=== PATIENT | male | born 1995 | race Caucasian/White ===

== ENCOUNTER 2017-01-19 15:44 | Emergency (ER) | payer OTHER ==
[~2017-01-19] VITALS: Ht 180.3 cm; Wt 64.2 kg
[2017-01-19 15:46] VITALS: TEMP 36.6; Ht 180.3 cm; Wt 64.2 kg
--- NOTE | 2017-01-19 15:58 | EMERGENCY ROOM VISIT NOTE ---
History Report prepared by Delbert: Ferny Aguilar Under the Supervision of: Dr. Hill Rasmussen M.D. First contact with patient: 15:50 Chief Complaint: HEAD INJURY (MINOR) Stated Complaint: HIT HEAD,NOT FEELING WELL History of Present Illness The patient is a 21 year old male who presents to the Emergency Room with complaints of persistent head pain beginning 2 days ago. He notes he was out walking around when he slipped on the sidewalk and hit his head on the ground. He reports being tired and dizzy yesterday, and woke with a headache rated a 3/ 10, and difficulty concentrating today. The patient denies losing consciousness , and denies any visual disturbance, teeth pain, chest pain, or abdominal pain. He does report having some mild neck pain, left wrist pain, and nausea. Source of History: patient Onset: 2 days ago Position: head Quality: other (head pain) Timing: other (persistent) Associated Symptoms: + headache, + neck pain, No abdominal pain, No chest pain Review of Systems See HPI for pertinent positives & negatives. A total of 10 systems reviewed and were otherwise negative. Past Medical & Surgical Medical Problems: (1) History of asthma Old medical records were reviewed. Nurse's notes were reviewed and I agree with. Family History No pertinent family history stated. Social History Smoking Status: Never Smoker Smokeless Tobacco Use: No Alcohol Use: none Housing Status: lives with family Occupation Status: [employer] student Current/Historical Medications Scheduled Clindamycin Phosphate-Benzoyl (Onexton 1.2-3.75 %), 1 APPLN TOP QPM Doxycycline (Monohydrate) (Doxycycline), 1 CAP PO BID Epinephrine (Epipen), 0.3 MG IM UD Tretinoin (Retin-A), 1 APPLN TOP QAM Allergies Coded Allergies: Peanut (Unverified Allergy, Severe, SWELLING, BREATHING, VERY BAD. , ) "MY WORST ALLERGY. I HAVE AN EPIPEN FOR IT" Peanut-containing Drug Products (Unverified Allergy, Severe, SWELLING, BREATHING, VERY BAD., 01/19/17) "MY WORST ALLERGY. I HAVE AN EPIPEN FOR IT" Amoxicillin (Unverified Allergy, Intermediate, UNSURE; CHILDHOOD ALLERGY, 01/19/17) NUTS (Unverified Allergy, Intermediate, LIPS SWELL, THROAT ITCHES, 01/19/17) Nut Tree (Unverified Allergy, Intermediate, LIPS SWELL, THROAT ITCHES, 01/19) Penicillins (Unverified Allergy, Intermediate, UNSURE; CHILDHOOD ALLERGY, 01/19/17) Uncoded Allergies: LEGUMES (Allergy, Intermediate, LIPS SWELL, THROAT ITCHES, 01/19/17) Physical Exam Vital Signs Date Time Temp Pulse Resp B/P Pulse Ox O2 Delivery O2 Flow Rate FiO2 01/19/17 16:25 68 18 125/71 97 01/19/17 15:46 36.6 66 20 119/67 97 Room Air Physical Exam General: Non-ill appearing young male in no acute distress. HEENT: Minimally tender over the left lateral frontal scalp, no crepitus. Pupils are equal round and reactive to light. Extraocular movements are intact. Oropharynx is pink with moist mucous membranes. No swelling of the mouth lips or tongue. Neck: Supple with a midline trachea. No meningeal signs or stiffness, no JVD or bruits. No Stridor. Chest: Clear to auscultation bilaterally. No wheezes or rhonchi. No increased work of breathing. Heart: regular rate and rhythm. Abdomen: Soft nontender, nondistended without rebound guarding or rigidity. Extremities: No cyanosis clubbing or edema. No calf tenderness or assymetry Spine/Back. Non tender to palpation. No CVA tenderness Skin: Good turgor without rashes. Neurologic exam: Cranial nerves two through 12 are intact. Motor and sensation are intact and symmetrical throughout. No tremor. Finger to nose intact. Negative gait. Negative Romberg. Medical Decision & Procedures ED Course 1552: Past medical records reviewed. The patient was evaluated in room D6, and a complete history and physical examination were performed. 1605: Upon reevaluation, the patient is doing well. I discussed the results and treatment plan with the patient. He verbalized agreement of the treatment plan. The patient was discharged home. Medical Decision Differentials include concussion, intracranial hemorrhage, and skull fracture. This patient comes in as described above. He was placed in room B6. He fell and hit his head 2 days ago. He has had some mild headache and dizziness. He looks well. On exam, he has minimal tenderness and no significant external signs of trauma to his head. He has a normal neurologic exam. He is alert and oriented 3. His [place] Coma Score is 15. He has no significant neck tenderness. He is ambulating without difficulty. Clinically, I do think he's had a concussion. I think that it is unlikely that he has anything more significant that would be revealed on CAT scans. I talked to the patient about the risk and benefits of doing the CT and the risk would include radiation risk . he does not want to do the CAT scan this point and I think that is very reasonable given his presentation. I had our case technician talked to him and they 're to try to get him with the concussion clinic for follow-up. He's to rest and take the next couple days off of school. Return if: Worsening of symptoms, increasing pain, any new problems or concerns. He is happy with plan and discharged home. Impression Primary Impression: Concussion Scribe Attestation The scribe's documentation has been prepared under my direction and personally reviewed by me in its entirety. I confirm that the note above accurately reflects all work, treatment, procedures, and medical decision making performed by me. Departure Information Dispostion Home / Self-Care Referrals No Doctor, Assigned (PCP) Patient Instructions [facility] Additional Instructions Rest. Drink plenty of fluids. Be careful when getting up and down. Rest and Avoid any activities where you could hit your head. Use Tylenol and/or ibuprofen for symptomatic care. Do not exceed the over-the- counter recommended dosages Return if: Increasing pain, worsening of symptoms, numbness or weakness, any new problems or concerns Follow-up with the student health clinic or the concussion clinic in the next couple days for recheck
[2017-01-19] MEDS ORDERED: EPP3/2 IM (16:08)
[2017-01-19] MEDS ORDERED: DOXY1CAP PO (16:08)
[2017-01-19] MEDS ORDERED: CLIN1GEL41 TOP (16:08)
[2017-01-19] MEDS ORDERED: TRET15GE TOP (16:08)
[2017-01-19 16:25] VITALS: BP 125/71; PULSE 68; O2SAT 97
== END 2017-01-19 16:26 | disposition home or self-care (01) ==
LOC: C.EDB 15:46 → C.EDD 16:26
DX: S06.0X0A Concussion without loss of consciousness, initial encounter (principal); W01.0XXA Fall on same level from slipping, tripping and stumbling without subsequent striking against object, initial encounter